=== PATIENT | male | born 1985 | race African-American/Black ===

== ENCOUNTER 2016-05-09 15:00 | Emergency (ER) | payer OTHER ==
[~2016-05-09] VITALS: Ht 190.5 cm; Wt 99.3 kg
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
[2016-05-09] MEDS ORDERED: CYCLOBENZAPRINE5 M2 PO (17:20)
[2016-05-09] MEDS ORDERED: NAPROSYN500 M1 PO (17:20)
[2016-05-09 17:40] VITALS: BP 144/80
== END 2016-05-09 17:40 ==
LOC: ERH 15:00
DX: R51 Headache (principal)